=== PATIENT | female | born 1930 | race Caucasian/White ===

== ENCOUNTER 2016-11-17 03:53 | Observation (INO) | payer MEDICARE, OTHER ==
[2016-11-17] MEDS ORDERED: ASPIRIN (CHEWABLE) 81 MG TAB PO ONE (04:55)
--- NOTE | 2016-11-17 04:55 | EDPRACDOC ---
- General Information Chief Complaint: Chest Pain Stated Complaint: CHEST PAIN Time Seen by Provider: 11/17/16 04:41 Allergies/Adverse Reactions: Allergies Allergy/AdvReac Type Severity Reaction Status Date / Time No Known Allergies Allergy Verified 11/17/16 05:10 - History of Present Illness HPI: PATIENT PRESENTS C/O LEFT SHOULDER AND BACK PAIN THAT BEGAN SUDDENLY TONIGHT. ASPIRIN AT HOME SEEMED TO HELP. MILD SOB. HX OF HTN AND HIGH CHOLESTEROL. FATHER WITH CO Chest Pain Location: Reports: Left Chest Pain Radiation: Reports: Back, Neck, Shoulder (L) Symptoms Occur: Reports: Suddenly Cardiac Risk Factors: Reports: Family History, Hyperlipidemia, Hypertension. Denies: Smoker, Diabetes Cardiac History of: Reports: None PE Risk Factors: Reports: None Medications within 24 Hours: Reports: None Prehospital Care: Reports: ASA (2 81 MG) Pain Came On: Reports: Suddenly Pain Status: Present Now Pain Description: Reports: Pressure Pain Severity: Mild Pain Worsens With: Reports: Nothing Pain Improves With: Reports: Other (ASPIRIN) Associated Signs and Symptoms: Reports: SOB ED Past Medical History - History Reviewed Yes Nurses notes reviewed and agree except as marked Travel Outside of [place] in the Last 3 Months?: No - Patient Medical History Cardiac History: Reports: Hypertension, Hypercholesterolemia - Social Medical History Smoking Status: Never smoker ETOH: None Substance Abuse: None Lives With: Family Lives In: Home EDM Review of Systems - Review of Systems ROS Negative Except as Marked: Yes All systems reviewed and were negative except as marked Constitutional: No Symptoms Reported. negative: Fever, Chills, Weakness, Fatigue, Loss of Appetite Eyes: No Symptoms Reported. negative: Redness, Blurred Vision, Double Vision, Discharge, Pain, Light Sensitive, Photophobia Ears: No Symptoms Reported. negative: Pain, Hearing Loss, Drainage, Ear Pulling Throat: No Symptoms Reported. negative: Pain, Swelling Nose: No Symptoms Reported. negative: Congestion, Bleeding, Discharge, Injection, Swelling, Deformity, Ecchymosis, Tender, Abrasion, Laceration Mouth: No Symptoms Reported. negative: Pain, Drooling Respiratory: No Symptoms Reported. negative: Cough, Brassy Cough, Barky Cough, Shortness of Breath, Wheezing, Hemoptysis Cardiovascular: Chest Pain. negative: Cyanosis, Edema, Orthopnea, Palpitations , PND, Syncope, Skin Mottling Gastrointestinal: No Symptoms Reported. negative: Pain, Constipation, Nausea, Vomiting, Diarrhea, Melena, Formula Intolerance Genitourinary: No Symptoms Reported. negative: Dysuria, Hematuria, Frequency, Discharge, Bleeding, Testicular Pain, Neurological: No Symptoms Reported. negative: Headache, Dizziness, Seizure, Numbness, Weakness, Speech Difficulty, Gait Difficulty Musculoskeletal: No Symptoms Reported. negative: Neck, Chestwall, Ribs, Back, Shoulder, Arm, Elbow, Forearm, Wrist, Hand, Pelvis, Hip, Femur, Knee, Leg, Ankle , Foot Integumentary: No Symptoms Reported. negative: Itching, Rash, Bruising, Wound Allergic/Immunologic: No Symptoms Reported. negative: Hives, Itching Hematologic: No Symptoms Reported. negative: Lymphadenopathy, Easy Bruising, Easy Bleeding Endocrine: No Symptoms Reported. negative: Weight Gain, Weight Loss Psychiatric: No Symptoms Reported. negative: Anxiety, Depression, Hallucinations, Insomnia, Suicidal - Physical Exam Constitutional: Alert (Awake), No apparent distress Oriented to: Time, Person, Place Last recorded Vital Signs: Last Vital Signs Temp 98.4 F 11/17/16 04:36 Pulse 69 11/17/16 04:36 Resp 20 11/17/16 04:36 BP 201/101 H 11/17/16 04:36 Pulse Ox 99 11/17/16 04:36 Oxygen Pulse Oxygen Saturation 99 O2 Device Oxygen Flow Rate Fraction of Inspired Oxygen ( FIO2) - HEENT Head: Normal ( normocephalic) Eye Exam: Normal (PERRL, EOMI, Sclera white) Oropharynx: Normal (Pharynx:Moist without exudate,Gums-no swelling) Tympanic Membrane: Normal ENT EAC: Normal TMJ: Normal Nose: No Symptoms Reported (septum midline) Neck: Normal (FROM, trachea at midline) - Respiratory/Cardiovascular Respiratory: Normal - CTA (BBS clear to auscultation without adventitious sounds ) Cardiovascular: Normal (RRR without murmur, gallop or rub) - GI Auscultation: Normal (NABS) Palpation: Normal (Soft,No rebound or guarding, non distended) Tenderness: Non tender Osuna's Sign: Negative - Musculoskeletal Back: Normal (Non-Tender) Extremities: Normal (Normal tone, Pulses 2+ No cyanosis or edema, FROM) - Integumentary Skin: Normal, Warm, Dry Lymphatics: Normal (no adenopathy) - Neurologic Memory Impaired: Normal Motor Function: Normal (Normal tone, Pulses 2+ No cyanosis or edema, FROM) Cranial Nerve: Normal (CN II-X11 intact sensation, strength 5/5) Cerebellar: Normal Mood Description: Normal Perception: Normal - Results 11/17/16 04:55 11/17/16 04:55 - Departure Yes I personally saw and evaluated the patient. Disposition: Admit IP To This Hospital Condition: Fair Final Diagnosis: Unstable angina, Poorly-controlled hypertension Instructions: Chest Pain (ED) Education/Counseling Given To: Patient Education/Counseling Given Regarding: Diagnosis, Treatment, Prognosis Decision to Admit Time: 05:57 Decision to admit date: 11/17/16 Decision to admit: from ED - Physician Consulted Hospitalist Time Called: 05:57 Provider Called: David Pruett Time Lacrosse Player Returned Call: 05:57
[2016-11-17] MEDS ORDERED: NITROGLYCERINE 2 % OINTMENT PACK TOP ONE (04:56)
[2016-11-17] MEDS ORDERED: METOPROLOL 5 MG/5 ML SDV IV ONE (04:56)
[2016-11-17 05:08] LABS: AUTOMATED EOSINOPHIL 2.4 % (0-5); AUTOMATED LYMPH 28.5 % (17-44); AUTOMATED MONOCYTE 7.7 % (3-10); AUTOMATED NEUTROPHIL 60.4 % (45-76); MPV 9.1 fL (7.4-10.4)
[2016-11-17 05:18] LABS: BLOOD UREA NITROGEN 15 MG/DL (7-17); CALCIUM 8.7 MG/DL (8.4-10.2); CALCULATED OSMOLALITY 270 MOs/Kg (270-290); CHLORIDE 101 mEq/L (98-107); GLUCOSE 121 MG/DL (70-99); SODIUM LEVEL 139 mEq/L (137-146); TOTAL PROTEIN 8.2 G/DL (6.3-8.2)
--- NOTE | 2016-11-17 05:27 | DIRPT ---
CLINICAL DATA: 86-year-old female with chest pain EXAM: PORTABLE CHEST 1 VIEW COMPARISON: None. FINDINGS: Single-view of the chest does not demonstrate a focal consolidation. There is no pleural effusion or pneumothorax. Mild cardiomegaly. The aorta is tortuous. There is atherosclerotic calcification of the visualized aorta. IMPRESSION: No active disease. Electronically Signed By: Quinton Mcdaniels M.D. On: 11/17/2016 05:25
[2016-11-17 05:34] LABS: PARTIAL THROMB. TIME 22.9 SEC (22-35)
--- NOTE | 2016-11-17 06:05 | HISTPHYS ---
- Chief Complaint chest pain - History of Present Illness PRIMARY CARE PROVIDER: Dr. Chin TRAM OPERATOR: Dr. Hernández HPI: The patient woke up this morning with back pain and chest pain and epigastric pain. Onset: this morning. Duration: intermittent. Location: epigastric area, back: is bilateral all over. Chest is generalized. Radiation: to back. Character: 10. Burning. No pressure or heaviness. Alleviated by: Nothing. Exacerbated by: Nothing. Associated Symptoms: No shortness of breath or sweating. No nausea or vomiting. Otherwise negative. Treatments: none at home except usual medications. PMH: Heart failure diagnosed 6 months ago with echo by Dr. Hernández. - Medical History Cardiac History: Reports: Hypertension, Congestive Heart Failure (Diagnosed 2016 ; echo at [facility] Hypercholesterolemia Systemic History: Reports: Hypothyroidism - Surgical History Reports: Cholecystectomy, Hysterectomy - Medictions/Allergies Allergies No Known Allergies Allergy (Verified 11/17/16 05:10) Current Medication List: Reviewed - Family History Reports: Diabetes (Brother), Cancer (Sister breast cancer), Stroke (Daugher), Cardiac Disorders (Father: MIs but at 81yo. Brother: [place].) - Social History Smoking Status: Never smoker Social History: Denies: Alcohol Use, Substance Use Disorder - Review of Systems GENERAL: No Fever, chills, or diaphoresis. Positive for fatigue/malaise. HEENT: No ear pain or discharge. No nasal discharge or bleeding. No throat pain or swelling. No eye pain or eye redness. RESPIRATORY: No cough, wheezing, or shortness of breath. CARDIOVASCULAR: No chest pain or palpitations. GI: Epigastric pain. No nausea, vomiting, diarrhea, constipation, or bloody stool. NEUROLOGICAL: No headache or focal weakness. INTEGUMENT: no rashes, itching, or lesions. LYMPHATIC SYSTEM: no lymph node swelling or pain. MUSCULOSKELETAL: Back pain; otherwise no new pain or joint swelling. GENITOURINARY: No dysuria or hematuria. ENDOCRINE: No polyuria or polydipsia. HEME: No chronic anemia, bleeding, or easy bruising. - Physical Exam Vital Signs: Initial Vitals Temperature 98.4 F 11/17/16 04:36 Pulse Rate 69 11/17/16 04:36 Respiratory Rate 20 11/17/16 04:36 Blood Pressure 201/101 H 11/17/16 04:36 Pulse Oxygen Saturation 99 11/17/16 04:36 Vital Signs - 24 hr 11/17/16 11/17/16 11/17/16 04:36 04:40 05:13 Temperature 98.4 F Pulse Rate 69 67 67 Respiratory 20 18 Rate Blood Pressure 201/101 H 181/73 H Pulse Oxygen 99 96 Saturation 11/17/16 11/17/16 11/17/16 05:14 05:26 06:18 Temperature Pulse Rate 67 60 59 L Respiratory 18 18 18 Rate Blood Pressure 181/73 H 173/73 160/68 Pulse Oxygen 97 98 99 Saturation 11/17/16 11/17/16 11/17/16 06:50 07:00 07:05 Temperature 98.1 F Pulse Rate 59 L 59 L 68 Respiratory 18 20 Rate Blood Pressure 160/68 188/90 H Pulse Oxygen 99 98 Saturation - Other Exam Other Exam Findings: GENERAL: Ill-appearing, well nourished, no acute distress. HEENT: Normocephalic, atraumatic; pupils equal and round. Nares patent, without discharge or bleeding. No oropharyngeal lesions or erythema. Mucous membranes are dry. NECK: is supple, no masses, trachea midline. RESPIRATORY: Clear to auscultation bilaterally. Chest wall movements are symmetric. No use of accessory muscles to breathe. No wheezing, rales, rhonchi. CARDIOVASCULAR: Normal S1, S2. No rubs. Murmur 2/6 systolic. Gallop noted. PMI non-displaced. Carotids: no carotid bruits. No bradycardia or tachycardia. DP pulses 2+ bilaterally. GI: soft, nontender, non-distended, normal active bowel sounds. No hepatosplenomegaly. INTEGUMENT: Clean, dry, and intact. No rashes. No lesions. MUSCULOSKELETAL: Moving all extremities. No cyanosis. No clubbing. Edema: trace lower extremity edema bilaterally. NEUROLOGICAL: Cranial nerves 2-12 grossly intact. Motor 5/5 throughout. Reflexes : 2+ bilaterally. Babinski: toes downgoing bilaterally. Intact Finger to nose. Sensory grossly intact to light touch. Intact rapid alternating movements bilaterally. No pronator drift. PSYCHIATRIC: Fully oriented. Normal and appropriate affect. LYMPHATIC: No cervical lymphadenopathy. No supraclavicular lymphadenopathy. - Lab Results Laboratory Results - last 24 hr 11/17/16 11/17/16 11/17/16 04:55 04:55 04:55 WBC 7.3 RBC 4.70 Hgb 13.2 Hct 39.3 MCV 84 MCH 28.0 MCHC 33.5 RDW 13.5 Plt Count 155 MPV 9.1 Neut % (Auto) 60.4 Lymph % (Auto) 28.5 Sabine % (Auto) 7.7 Eos % (Auto) 2.4 Baso % (Auto) 1.0 Absolute Neuts (auto) 4.38 Absolute Lymphs (auto) 2.04 PT 10.3 INR 1.0 APTT 22.9 Sodium 139 Potassium 3.9 Chloride 101 Carbon Dioxide 27 Anion Gap 15 BUN 15 Creatinine 0.90 Estimated GFR (MDRD) 60 Glucose 121 H Calculated Osmolality 270 Calcium 8.7 Total Bilirubin 0.6 AST 38 H ALT 17 Alkaline Phosphatase 57 Troponin I < 0.01 [id number]-G-Rtlxfpgsijx Pept 1370 Total Protein 8.2 Albumin 4.0 11/17/16 07:41 WBC RBC Hgb Hct MCV MCH MCHC RDW Plt Count MPV Neut % (Auto) Lymph % (Auto) Sabine % (Auto) Eos % (Auto) Baso % (Auto) Absolute Neuts (auto) Absolute Lymphs (auto) PT INR APTT Sodium Potassium Chloride Carbon Dioxide Anion Gap BUN Creatinine Estimated GFR (MDRD) Glucose Calculated Osmolality Calcium Total Bilirubin AST ALT Alkaline Phosphatase Troponin I < 0.01 Svk-T-Vasepsaftkd Pept Total Protein Albumin - Diagnostic Findings EK beats per minute. Normal sinus rhythm. Left bundle branch block. Low -voltage in leads 1, 2, 3, aVL, AVR, AVF, and V3. Slight ST-depression in leads V5 and V6. Reviewed EKG personally. Chest x-ray, viewed personally: EXAM: PORTABLE CHEST 1 VIEW COMPARISON: None. FINDINGS: Single-view of the chest does not demonstrate a focal consolidation. There is no pleural effusion or pneumothorax. Mild cardiomegaly. The aorta is tortuous. There is atherosclerotic calcification of the visualized aorta. IMPRESSION: No active disease. - Assessment (1) Chest pain R07.9 - CHEST PAIN, UNSPECIFIED Acute Present on Admission: Yes Rule out myocardial infarction. Plan: Obtain cardiac enzymes x 3. Place patient on telemetry. Give patient oxygen, aspirin. Give nitroglycerin, and morphine as needed for chest pain. Give statin. Stress test has been ordered for the morning. Patient has been advised, if the stress test is negative, to follow up with the primary care provider for evaluation of other potential causes of the chest pain. (2) Hypertensive urgency I16.0 - HYPERTENSIVE URGENCY Acute Present on Admission: Yes Patient with severe elevation of her blood pressure. Plan: Add beta-jt, YAYO-inhibitor, and nitroglycerin. If still hypertensive will add IV hydralazine. (3) Epigastric pain R10.13 - EPIGASTRIC PAIN Acute Present on Admission: Yes May be an anginal equivalent or could be gastritis or an ulcer. Plan: Continue cardiac workup. Pantoprazole IV q.12. (4) Back pain M54.9 - DORSALGIA, UNSPECIFIED Acute Present on Admission: Yes Upper back pain bilaterally. Nontender. Could be related chest pain or could be a separate issue. Plan: Continue cardiac workup. Follow up with your primary care physician for further evaluation and treatment. (5) Left bundle branch block I44.7 - LEFT BUNDLE-BRANCH BLOCK, UNSPECIFIED Chronic Present on Admission: Yes Left bundle branch block was found on the EKG. This is presumably chronic but we do not have an old EKG for comparison. Plan: Continue cardiac workup. Obtain records from division plant engineer. (6) Chronic heart failure I50.9 - HEART FAILURE, UNSPECIFIED Chronic Present on Admission: Yes Qualifiers: Heart failure type: unspecified heart failure type Qualified Code(s): I50.9 - Heart failure, unspecified Patient reports she has heart failure diagnosed in the summer of 2016. She has not had any exacerbations, and does not report weight gain or worsening leg swelling. Plan: Reminded patient to weigh herself daily, which she is not doing. Will need teaching regarding 2g Na diet and further information about heart failure. Will request echocardiogram results from [facility]. Case Care Discussed with: Patient, Family, Nursing Staff
[2016-11-17 07:08] VITALS: BMI 27.5
[2016-11-17] MEDS ORDERED: TEMAZEPAM 15 MG CAP PO PRN (07:58)
[2016-11-17] MEDS ORDERED: BENZONATATE 100 MG PERLES PO PRN (07:58)
[2016-11-17] MEDS ORDERED: SENNA CONCENTRATE TAB PO PRN (07:58)
[2016-11-17] MEDS ORDERED: MORPHINE 2 MG/ML INJECTION IV PRN (07:58)
[2016-11-17] MEDS ORDERED: GUAIFEN 100 MG-DEXTROMETH 10 MG PER 5 ML PO PRN (07:58)
[2016-11-17] MEDS ORDERED: NITROGLYCERINE 0.4 MG TAB SL PRN (07:58)
[2016-11-17] MEDS ORDERED: BISACODYL 5 MG TAB PO PRN (07:58)
[2016-11-17] MEDS ORDERED: ACETAMINOPHEN 325 MG SUPP PR PRN (07:58)
[2016-11-17] MEDS ORDERED: PROMETHAZINE 25 MG/ML VIAL IV PRN (07:58)
[2016-11-17] MEDS ORDERED: ACETAMINOPHEN 325 MG/TAB TABLET PO PRN (07:58)
[2016-11-17] MEDS ORDERED: Aluminum;Magnesium;Simethicone 30 ML UDC PO PRN (07:58)
[2016-11-17] MEDS ORDERED: ONDANSETRON HCL 4 MG/2 ML VIAL IV PRN (07:58)
[2016-11-17] MEDS ORDERED: Pharmacy Order Set Alert SCH (08:00)
[2016-11-17] MEDS ORDERED: LISINOPRIL 5 MG TAB PO SCH (09:00)
[2016-11-17] MEDS ORDERED: CARVEDILOL 3.125 MG TAB PO SCH (09:00)
[2016-11-17] MEDS ORDERED: hydrALAZINE 20 MG/ML VIAL IV PRN (09:46)
[2016-11-17] MEDS: ASPIRIN 325 MG TAB PO SCH (10:32)
[2016-11-17] MEDS: ENOXAPARIN 40 MG/0.4 ML PFS SQ SCH (10:33)
[2016-11-17] MEDS: PANTOPRAZOLE 40 MG VIAL IV SCH (10:33)
[2016-11-17] MEDS: ATORVASTATIN 40 MG TAB PO SCH (10:50)
[2016-11-17] MEDS ORDERED: Vaccine Screening Complete SCH (12:00)
[2016-11-17 12:24] LABS: LDL (calc.) 130.4 MG/DL (<100); VLDL (calc.) 59.6 MG/DL (5-40)
[2016-11-17] MEDS: LISINOPRIL 10 MG TAB PO SCH (14:55)
[2016-11-17] MEDS: ENALAPRILAT 1.25 MG/ML VIAL IV PRN (17:26)
[2016-11-17] MEDS: CARVEDILOL 3.125 MG TAB PO SCH (21:10)
[2016-11-18] MEDS: ENALAPRILAT 1.25 MG/ML VIAL IV PRN ×3 (00:12→09:27)
[2016-11-18] MEDS: LISINOPRIL 10 MG TAB PO SCH (08:15)
[2016-11-18] MEDS ORDERED: REGADENOSON 0.4 MG/5 ML SYRINGE IV ONE (09:00)
[2016-11-18] MEDS ORDERED: SODIUM CHLORIDE 0.9% 10 ML FLUSH FLUSH ONE (09:00)
[2016-11-18] MEDS ORDERED: LISINOPRIL 40 MG TAB PO ONE (10:00)
[2016-11-18] MEDS ORDERED: hydrALAZINE 20 MG/ML VIAL IV PRN (10:27)
[2016-11-18] MEDS ORDERED: hydrALAZINE 20 MG/ML VIAL ONE (10:29)
[2016-11-18] MEDS ORDERED: SESTAMIBI 8 MCI V IV ONE (11:50)
[2016-11-18] MEDS: ATORVASTATIN 40 MG TAB PO SCH (13:27)
[2016-11-18] MEDS: ASPIRIN 325 MG TAB PO SCH (13:27)
[2016-11-18] MEDS: CARVEDILOL 3.125 MG TAB PO SCH (13:27)
[2016-11-18] MEDS: PANTOPRAZOLE 40 MG VIAL IV SCH (13:28)
[2016-11-18] MEDS: ENOXAPARIN 40 MG/0.4 ML PFS SQ SCH (13:28)
--- NOTE | 2016-11-18 14:52 | DIRPT ---
CLINICAL DATA: Chest pain EXAM: NM LEXISCAN CARDIOLITE TECHNIQUE: Cardiolite cardiac stress Test Lexiscan protocol RADIOPHARMACEUTICALS: Eight and 25 millicuries TC 99 M Cardiolite COMPARISON: None. FINDINGS: A Cardiolite cardiac stress Test Lexiscan protocol was performed. The stress portion of the test was supervised by Dr. Mathis. I reviewed the images with him. There is no evidence of ischemia. Fixed septal defect is noted probable due to scarring. There is asynchronous contractility. Left ventricle ejection fraction is 47%. IMPRESSION: There is no evidence of ischemia. Fixed septal defect is noted probable due to scarring. There is asynchronous contractility. Left ventricle ejection fraction is 47%. Electronically Signed By: Surjit Villalobos M.D. On: 11/18/2016 14:49
--- NOTE | 2016-11-18 15:01 | CAPUEKG ---
[place], [place] Test Date: 2016-11-17 Pat Name: EARLE SUN Department: Room: 432 Gender: Female Claim Clinician: : Requested By: Order Number: Reading MD: Reese Mathis MD Measurements Intervals [place] Rate: 56 P: 84 WI: 196 QRS: -20 QRSD: 126 T: 113 QT: 490 QTc: 472 Interpretive Statements Sinus bradycardia Left bundle branch block Abnormal ECG Electronically Signed On 11-18-16 15:00:58 EST by Reese Mathis MD <[id number]> [id number]
--- NOTE | 2016-11-18 15:48 | PCM.DCS92 ---
- Final/Secondary Discharge Diagnosis (1) Chest pain Acute R07.9 - CHEST PAIN, UNSPECIFIED Present on Admission: Yes precordial pain R07.2 - Precordial pain Comment: The patient was admitted to rule out myocardial infarction. We obtained cardiac enzymes x 3. She was placed on telemetry, given oxygen, aspirin. Gave nitroglycerin, and morphine as needed for chest pain. Also gave statin. Stress test was ordered for the morning. Patient has been advised, that the stress test is negative for ischemia, and to follow up with the primary care provider for evaluation of other potential causes of the chest pain. (2) Hypertensive urgency Acute I16.0 - HYPERTENSIVE URGENCY Present on Admission: Yes Comment: Patient with severe elevation of her blood pressure. Add beta-jt, YAYO-inhibitor, and nitroglycerin. If still hypertensive will add IV hydralazine. (3) Poorly-controlled hypertension Acute I10 - ESSENTIAL (PRIMARY) HYPERTENSION Present on Admission: Yes Comment: Needs improved BP control. Follow-up with primary care physician. (4) Chronic heart failure Chronic I50.9 - HEART FAILURE, UNSPECIFIED Present on Admission: Yes unspecified heart failure type I50.9 - Heart failure, unspecified Comment: Patient reports she has heart failure diagnosed in the summer of 2016. She has not had any exacerbations, and does not report weight gain or worsening leg swelling. Reminded patient to weigh herself daily, which she is not doing. Will need teaching regarding 2g Na diet and further information about heart failure. Will request echocardiogram results from [facility]. (5) Left bundle branch block Chronic I44.7 - LEFT BUNDLE-BRANCH BLOCK, UNSPECIFIED Present on Admission: Yes Comment: Left bundle branch block was found on the EKG. This is presumably chronic but we do not have an old EKG for comparison. Continue cardiac workup. Obtain records from marketing proposal specialist. Discharge Disposition: Home Discharge Condition: Improved Cognitive Discharge Status: Unimpaired Fuctional Discharge Status: Independent Physician Follow up/Referrals: Arlen Chin MD [Primary Care Provider] - One Week New Prescriptions: Atorvastatin Calcium [Lipitor] 40 mg PO DAILY #30 tablet Carvedilol 25 mg PO BID #60 tablet Isosorbide Mononitrate [Imdur] 30 mg PO DAILY #30 tab Nitroglycerin Sublingual Tab [NTG (NitroStat Sublingual Tab)] 0.4 mg SL Q5MIN PRN #30 tablet PRN Reason: Chest Pain Or Discomfort Discharge Home Medication List Furosemide [Lasix] 40 mg PO DAILY 11/17/16 [History Confirmed 11/17/16 Last Taken 1 Day Ago] Levothyroxine [Synthroid, Levoxyl] 75 mcg PO DAILY 11/17/16 [History Confirmed 11/17/16 Last Taken 1 Day Ago] Lisinopril [Prinivil] 40 mg PO BID 11/17/16 [History Confirmed 11/17/16 Last Taken 1 Day Ago] Atorvastatin Calcium [Lipitor] 40 mg PO DAILY #30 tablet 11/18/16 [Rx Last Taken Unknown] Carvedilol 25 mg PO BID #60 tablet 11/18/16 [Rx Last Taken Unknown] Isosorbide Mononitrate [Imdur] 30 mg PO DAILY #30 tab 11/18/16 [Rx Last Taken Unknown] Nitroglycerin Sublingual Tab [NTG (NitroStat Sublingual Tab)] 0.4 mg SL Q5MIN PRN #30 tablet 11/18/16 [Rx Last Taken Unknown] O2 Device: Room Air Diet at Discharge: Heart Healthy, Low Salt Activity: As Tolerated Call Office For: Worsening Symptoms Discontinue use of:: Alcohol, All Illegal Substances, All Types of Tobacco - DC Summary Notes Hospital Course Note:: Discharge summary on patient named EARLE SUN admitted to [facility] on 11/17/16 by David Pruett MD. Date of discharge is []. The patient was admitted to rule out myocardial infarction. We obtained cardiac enzymes x 3. She was placed on telemetry, given oxygen, aspirin. Gave nitroglycerin, and morphine as needed for chest pain. Also gave statin. Stress test was ordered for the morning. Patient has been advised, that the stress test is negative for ischemia, and to follow up with the primary care provider for evaluation of other potential causes of the chest pain. Her blood pressure was not controlled, and this is thought to be a major contributor to her chest pain. We increased the strength of her carvedilol and added isosorbide mononitrate also. She is to continue her other medications and follow up with Dr. Chin in 1 week. Total Time: 45 min. Code: 78825 - Physical Exam Vital Signs: Last Vital Signs Temp 97.7 F 11/18/16 13:12 Pulse 74 11/18/16 13:12 Resp 17 11/18/16 13:12 BP 168/74 11/18/16 13:12 Pulse Ox 98 11/18/16 13:12 Oxygen Pulse Oxygen Saturation 98 O2 Device Room Air Oxygen Flow Rate Fraction of Inspired Oxygen ( FIO2) Constitutional: Alert (Awake), No apparent distress Oriented to: Time, Person, Place - HEENT Head: Normal ( normocephalic) Eye: Normal (PERRL, EOMI, Sclera white) Oropharynx: Normal (Pharynx:Moist without exudate,Gums-no swelling) Tympanic Membrane: Normal ENT EAC: Normal TMJ: Normal Nose: No Symptoms Reported (septum midline) - Respiratory/Cardiovascular Respiratory: Normal - CTA (BBS clear to auscultation without adventitious sounds ) Cardiovascular: Normal (RRR without murmur, gallop or rub) - GI Auscultation: Normal (NABS) Palpation: Normal (Soft,No rebound or guarding, non distended) Tenderness: Non tender Osuna's Sign: Negative - Musculoskeletal Back: Normal (Non-Tender) Extremities: Normal (Normal tone, Pulses 2+ No cyanosis or edema, FROM) - Integumentary Skin: Normal, Warm, Dry Lymphatics: Normal (no adenopathy) - Neurologic Memory Impaired: Normal Cerebellar: Normal Mood Description: Normal Perception: Normal - Other Exam Other Exam Findings: STRESS TEST: IMPRESSION: There is no evidence of ischemia. Fixed septal defect is noted probable due to scarring. There is asynchronous contractility. Left ventricle ejection fraction is 47%. Electronically Signed By: Surjit Villalobos M.D. On: 11/18/2016 14:49
[2016-11-18 16:06] VITALS: TEMP 97.5
--- NOTE | 2016-11-18 16:24 | PCM.STRESS ---
This is a Lexiscan Cardiolite test, patient received a standard dose of Lexiscan. The resting heart rate and blood pressure, 86 beats per minute 162/100. The peak heart rate and blood pressure, 117 beats per minute and 168/100. The resting EKG shows sinus rhythm left bundle branch block. The stress EKG is inconclusive for ischemia bundle branch block. Blood pressure response is normal. The rhythm is sinus, there is no arrhythmia. Symptoms present included headache nausea and flushing that was transient. The radiologist will generate the Cardiolite report.
[2016-11-18] MEDS ORDERED: ISOSORBIDE MONONITRATE 30 MG TAB PO ONE (17:11)
[2016-11-18] MEDS ORDERED: CARVEDILOL 25 MG TABLET PO ONE (17:11)
[2016-11-18 18:09] VITALS: BP 152/70; PULSE 63
== END 2016-11-18 18:32 | disposition home or self-care (01) ==
LOC: ED 03:53 → UNDOADMOB 06:02 → PCU 06:02 → UNDOADMOB 06:03 → PCU 06:03 → MPS3 09:05 → PCU 09:37 → MPS3 09:37 → PCU 10:11
PROVIDERS: ADMIT Internal Medicine; ATTEND Family Medicine
DX: R07.9 Chest pain, unspecified (principal); I11.0 Hypertensive heart disease with heart failure; M54.9 Dorsalgia, unspecified; R10.13 Epigastric pain; Z82.49 Family history of ischemic heart disease and other diseases of the circulatory system; I44.7 Left bundle-branch block, unspecified; I50.9 Heart failure, unspecified; E03.9 Hypothyroidism, unspecified; E78.00 Pure hypercholesterolemia, unspecified
CPT/HCPCS: 36415; 71010; 78452; 80053; 80061; 83880; 84484; 85025; 85610; 85730; 93005; 93017; 96372; 96374; 99284; A4216; A9270; A9500; G0378; J0360; J1650; J2785; J3490; S0164